=== PATIENT | male | born 1995 | race Caucasian/White ===

== ENCOUNTER 2017-06-14 10:43 | Emergency (ER) | payer OTHER ==
--- NOTE | 2017-06-14 11:03 | ER PHYSICIAN DOCUMENTATION ---
Physician Documentation [facility] Name:García Carbone Age:22 yrs Sex:Male :1995 Arrival Date:06/14/2017 Time:10:43 Bed6 Private MD:No PCP, Identified ED GabbieLeroy morton Disposition: 06/14/17 10:57 Discharged to Home/Self Care. Impression: Head Contusion, Unspecified Part of Head. - Condition is Good. - Discharge Instructions: ABRASION. - Medical Reconciliation form form. - Follow up: Private Physician; When: As needed; Reason: Continuance of care. - Problem is new. - Symptoms have improved. HPI: 06/14 10:58 This 22 yrs old Male presents to ER via Private Vehicle with complaints of jm Head Injury-Pedi. 10:58 This 22 yrs old Male presents to ER via Private Vehicle with complaints of jm Head Injury. 10:58 The patient presents to the emergency department complaining of blunt trauma from. jm Injuries: The patient suffered an injury to the head, abrasion, contusion. Associated signs and symptoms: Pertinent negatives: blurred vision, headache, lightheadedness, numbness, The patient did not experience a loss of consciousness. The patient has not recently seen a physician. Hit head getting out of car. Historical: - Allergies: No known drug Allergies; - Home Meds: 1. None - PMHx: None; - PSHx: None; - Tetanus: < 10 years. - Ebola Screening: : Patient negative for fever greater than or equal to 101.5 degrees Fahrenheit, and additional compatible Ebola Virus Disease symptoms. - Immunization history: Flu Vaccine < 1 year. - Social history: Smoking status: Patient uses tobacco products, current every day smoker. ROS: 10:59 Constitutional: Negative for fever. jm 10:59 Neck: Negative for injury or acute deformity. 10:59 Skin: Positive for abrasion(s). 10:59 Neuro: Negative for dizziness, headache. Exam: 11:00 Constitutional: The patient appears alert, awake. jm 11:00 Head/face: Noted is abrasion(s), that are mild, of the top of head, hematoma, that is mild, a laceration(s), that is superficial. 11:00 Eyes: Pupils: equal, round, and reactive to light and accomodation, Extraocular movements: intact throughout. Vital Signs: 10:57 BP 137 / 82; Pulse 92; Resp 17; Temp 98.7(TE); Pulse Ox 95% on R/A; Weight 68.04 kg; rh Height 5 ft. 9 in. (175.26 cm); Pain /; 10:57 Body Mass Index 22.15 (68.04 kg, 175.26 cm) rh MDM: 10:51 Patient medically screened. 11:00 Differential diagnosis: Contusion of Laceration of. Data reviewed: vital signs, nurses jm notes, and as a result, I will discharge patient. Counseling: I had a detailed discussion with the patient and/or guardian regarding: the historical points, exam findings, and any diagnostic results supporting the discharge/admit diagnosis, the need for outpatient follow up, with the patient's primary care provider. 06/14 10:58 Order name: Wound Care; Complete Time: 10:58 rh Dispensed Medications: No medications were administered Signatures: Leroy Flanagan MD MD jm Hofsess, Rachel
--- NOTE | 2017-06-14 11:03 | ER NURSING DOCUMENTATION ---
Nurse's Notes [facility] Name:García Carbone Age:22 yrs Sex:Male :1995 Arrival Date:06/14/2017 Time:10:43 Bed6 Private MD:No PCP, Identified Diagnosis:Head Contusion, Unspecified Part of Head Presentation: 06/14 10:48 Acuity: BEATRIZ 3 rh 10:54 Presenting complaint: Patient states: Pt was getting out of a car at the [place] and rh bumped the top of his head on the car door. Pt has small lac to the top of his head. Denies LOC or headache. Transition of care: Other Work. 10:54 Method Of Arrival: Private Vehicle Triage Assessment: 10:56 General: Appears in no apparent distress, Behavior is crying. Pain: Complains of pain rh in top of head. Neuro: Level of Consciousness is awake, alert, obeys commands, Oriented to person, place, time, event, Reports dizziness. Cardiovascular: Capillary refill < 3 seconds. Derm: Skin is intact, is healthy with good turgor, Skin is pink, warm & dry. Musculoskeletal: Circulation, motion, and sensation intact Range of motion intact in all extremities. Injury Description: Laceration sustained to top of head is clean, superficial, was sustained less than 30 minutes ago. is bleeding a small amount. Historical: - Allergies: No known drug Allergies; - Home Meds: 1. None - PMHx: None; - PSHx: None; - Tetanus: < 10 years. - Ebola Screening: : Patient negative for fever greater than or equal to 101.5 degrees Fahrenheit, and additional compatible Ebola Virus Disease symptoms. - Immunization history: Flu Vaccine < 1 year. - Social history: Smoking status: Patient uses tobacco products, current every day smoker. Screenin:58 Infectious Disease Risk None. Abuse screen: Denies threats or abuse. Denies injuries rh from another. Nutritional screening: No deficits noted. Assessment: 10:58 See Triage Assessment done by same RN. rh Vital Signs: 10:57 BP 137 / 82; Pulse 92; Resp 17; Temp 98.7(TE); Pulse Ox 95% on R/A; Weight 68.04 kg; rh Height 5 ft. 9 in. (175.26 cm); Pain 1/10; 10:57 Body Mass Index 22.15 (68.04 kg, 175.26 cm) ED Course: 10:44 Patient arrived in ED. ds 10:45 No PCP, Identified is Private Physician. 10:48 Mariana Sherman is Primary Nurse. 10:48 Triage completed. 10:51 Leroy Flanagan MD is Attending Physician. 10:58 Notified ED Physician of patient's arrival and chief complaint. Dr. Flanagan notified. 10:58 Valuables Remains with patient Patient has correct armband on for positive rh identification. Bed in low position. Call light in reach. 10:58 Wound care to laceration located on top of head was cleaned with soap and water, Patient tolerated well. Administered Medications: No medications were administered Outcome: 10:57 Discharge ordered by . 11:02 Discharged to home ambulatory. 11:02 Condition: improved 11:02 Discharge Assessment: Patient awake, alert and oriented x 3. No cognitive and/or functional deficits noted. Patient verbalized understanding of disposition instructions. 11:02 Discharge instructions given to patient, Instructed on discharge instructions, follow up and referral plans. Demonstrated understanding of instructions. 11:03 Patient left the ED. 06/15 15:57 Discharge F/U Call: Unable to reach: non-working number tg Signatures: Kevon Clement RN RN tg Srot, Michelle, Reg Reg Leroy Felix MD MD jm Hofsess, Rachel
== END 2017-06-14 11:03 | disposition home or self-care (01) ==
LOC: ER 10:43
DX: S00.03XA Contusion of scalp, initial encounter (principal); S00.01XA Abrasion of scalp, initial encounter; W22.8XXA Striking against or struck by other objects, initial encounter; Y92.481 Parking lot as the place of occurrence of the external cause; Y93.89 Activity, other specified; Y99.0 Civilian activity done for income or pay
CPT/HCPCS: 99283